=== PATIENT | female | born 1975 | race Caucasian/White ===

== ENCOUNTER 2017-03-19 14:16 | Emergency (ER) | payer OTHER ==
--- NOTE | ~2017-03-19 | ER ---
PATIENT'S NAME: DRE BECERRIL [facility] AGE: 41 Y [address] ROOM: [place] [address] LOCATION: [facility] ADMIT DATE: 03/19/2017 ER/Outpatient Report DISCHARGE DATE: 03/19/2017 FAMILY PHYSICIAN: Divya Benito MD ATTENDING PHYSICIAN: Krissy Laughlin TIME SEEN: 1425 hours. HISTORY OF PRESENT ILLNESS: The patient is a 41-year-old female. She was at a baseball game, a foul ball came over the fence and struck her on the right side of her chin. She denied any loss of consciousness. ALLERGIES: NONE. HOME MEDICATIONS: See her copied list. MEDICAL HISTORY: Depression. SOCIAL HISTORY: Nonsmoker. Alcohol, socially. REVIEW OF SYSTEMS: CONSTITUTIONAL: General health good. HEAD AND ENT: Denies any head or neck pain. Does complain of pain on the right side of her chin and jaw. Denied neck pain. She has had no epistaxis. She states that her teeth are stable. OBJECTIVE FINDINGS: VITAL SIGNS: Reviewed. GENERAL: The patient is somewhat emotional. HEENT: Eyes: Pupils equal and reactive. Nose: There is no tenderness to palpation. Septum is midline. Teeth appeared stable. Chin: There is some soft tissue swelling on the right side. She had no TMJ tenderness. DIAGNOSTIC DATA: X-ray Panorex showed no mandible fracture. ASSESSMENT: Contusion, right side chin, from a foul ball baseball. PATIENT'S NAME: DRE BECERRIL [facility] AGE: 41 Y [address] ROOM: [place] [address] LOCATION: [facility] ADMIT DATE: 03/19/2017 ER/Outpatient Report DISCHARGE DATE: 03/19/2017 FAMILY PHYSICIAN: Divya Benito MD ATTENDING PHYSICIAN: Krissy Laughlin PLAN: Recommend ice 10-15 minutes for the next every couple hours. Ibuprofen 600 every 6 hours for pain. Follow up with concerns. EVERETT MENDOZA FOR MD YOLANDA AGRAWAL/faby /[id number] d: 03/19/17 1853 t: 03/27/17 1209, OUTPATIENT REPORT
== END 2017-03-19 15:06 | disposition disaster alternative care site (69) ==
LOC: GACC 14:16
DX: S00.83XA Contusion of other part of head, initial encounter (principal); F32.9 Major depressive disorder, single episode, unspecified; Z79.899 Other long term (current) drug therapy; W21.03XA Struck by baseball, initial encounter; Y93.64 Activity, baseball; Y99.8 Other external cause status